=== PATIENT | female | born 1990 | race African-American/Black ===

== ENCOUNTER 2018-12-30 00:05 | Inpatient (IN) ==
[2018-12-30] MEDS ORDERED: ONDANSETRON 4 MG/2 ML VIAL IV PRN (00:20)
[2018-12-30] MEDS ORDERED: AMPICILLIN INJ 2,000 MG in SODIUM CHLORIDE 0.9% 100 ML IV ONE (00:25)
[2018-12-30] MEDS ORDERED: LABETALOL 100 MG TABLET ONE (00:52)
[2018-12-30] MEDS: LABETALOL 100 MG TABLET PO SCH ×3 (01:00→22:41)
[2018-12-30 01:05] LABS: Basophils % 0.2 % (0.0-0.8); Eosinophils # 0.1 10*3/uL (0.0-0.87); Eosinophils % 0.8 % (0.00-10.9); Hematocrit 31.7 VOL% (35.7-47.0); Hemoglobin 9.5 GM/DL (12.0-16.0); Immature Granulocytes % 1.1 %; Immature Granulocytes Absolute 0.15 #; Mean Corpuscular Hemoglobin 21 PG (27-34); Mean Corpuscular Volume 68.5 FL (87-102); Mean Platelet Volume 9.1 FL (9.6-12.0); Monocytes # 1.1 10*3/uL (0.11-0.8); Monocytes % 7.9 % (1.7-12.7); Platelet Count 326 T/CUMM (130-400); Red Blood Count 4.63 MC/CUMM (3.8-5.5); Red Cell Distribution Width 19.9 % (9.3-17.3); White Blood Count 13.4 T/CUMM (4-12)
[2018-12-30] MEDS: LACTATED RINGERS 1,000 ML IV SCH ×4 (01:19→21:14)
[2018-12-30 01:26] LABS: Bilirubin,Direct < 0.100 MG/DL (0.0-0.20); Uric Acid 3.7 MG/DL (2.6-6.0)
[2018-12-30 01:28] LABS: Alanine Aminotransferase 12 U/L (13-56); Albumin 2.5 G/DL (3.4-5.0); Alkaline Phosphatase 100 U/L (45-117); Aspartate Amino Transferase 10 U/L (0-37); Bilirubin,Total < 0.39 MG/DL (0.2-1.0); Blood Urea Nitrogen 8 MG/DL (7-18); Glucose 90 MG/DL (74-106); Osmolality,Calculated 274.5 MOS/KG (273-304); Potassium 3.8 MMOL/L (3.5-5.1); Sodium 139 MMOL/L (136-145); Total Protein 6.9 G/DL (6.4-8.3)
[2018-12-30 01:34] LABS: INR 0.9; PT Patient Result 9.6 SECS; Partial Thromboplastin Time 26.6 SECS (0-40)
[2018-12-30] MEDS: AMPICILLIN INJ 1,000 MG in SODIUM CHLORIDE 0.9% 100 ML IV SCH ×5 (04:43→22:41)
[2018-12-30] MEDS: OXYTOCIN/LR 20 UNIT/1,000 ML BAG IV SCH (08:51)
[2018-12-30] MEDS: BUTORPHANOL 2 MG/ML VIAL IV PRN ×2 (13:42→17:38)
[2018-12-30] MEDS ORDERED: LACTATED RINGERS 1,000 ML IV ONE (20:14)
[2018-12-30] MEDS ORDERED: CITRIC ACID/SODIUM CITRATE 30 ML UDCUP PO ONE (20:14)
[2018-12-30] MEDS ORDERED: ePHEDrine 50 MG/ML AMP IV PRN (20:14)
[2018-12-30] MEDS ORDERED: FAMOTIDINE 20 MG/2 ML VIAL IV ONE (20:14)
[2018-12-30] MEDS ORDERED: diphenhydrAMINE 50 MG/1 ML VIAL IV PRN ×2 (20:16)
[2018-12-30] MEDS ORDERED: NALOXONE 0.4 MG/ML VIAL IV PRN (20:16)
[2018-12-30] MEDS ORDERED: hydrOXYzine HCL 25 MG/1 ML VIAL IM PRN (20:16)
[2018-12-30] MEDS ORDERED: fentaNYL 2 MCG/ROPIV 0.2% EPID 100 ML EPIDURAL SCH (20:30)
[2018-12-30] MEDS ORDERED: LIDOCAINE 1% 50 ML VIAL ONE (23:56)
[2018-12-30] MEDS ORDERED: CARBOPROST TROMETHAMINE 250 MCG/ML AMP IM ONE (23:56)
[2018-12-30] MEDS ORDERED: miSOPROStol 200 MCG TABLET ONE (23:56)
[2018-12-30] MEDS ORDERED: METHYLERGONOVINE 0.2 MG/1 ML AMP ONE (23:56)
[2018-12-31] MEDS: AMPICILLIN INJ 1,000 MG in SODIUM CHLORIDE 0.9% 100 ML IV SCH ×2 (02:28→06:20)
[2018-12-31] MEDS ORDERED: ceFAZolin 3,000 MG in SYRINGE 1 EACH IV ONE (07:36)
[2018-12-31] MEDS ORDERED: LIDOCAINE MPF 2% /EPI 20 ML VIAL ONE (07:40)
[2018-12-31] MEDS ORDERED: PHENYLEPHRINE 1 MG/10 ML SYRINGE IV ONE (07:40)
[2018-12-31] MEDS ORDERED: MAGNESIUM HYDROXIDE SUSP 30 ML UDCUP PO PRN (09:11)
[2018-12-31] MEDS ORDERED: ONDANSETRON 4 MG/2 ML VIAL IV PRN (09:11)
[2018-12-31] MEDS ORDERED: IBUPROFEN 800 MG TABLET PO PRN (09:11)
[2018-12-31] MEDS ORDERED: OXYTOCIN/LR 20 UNIT/1,000 ML BAG IV ONE (09:11)
[2018-12-31] MEDS ORDERED: ACETAMINOPHEN 325 MG TABLET PO PRN (09:11)
[2018-12-31] MEDS ORDERED: RHO(D) IMMUNE GLOBULIN 300 MCG SYRINGE IM ONE (10:00)
[2018-12-31] MEDS: KETOROLAC 30 MG/1 ML VIAL IV SCH ×3 (11:20→23:04)
[2018-12-31] MEDS: ACETAMINOPHEN 500 MG TABLET PO SCH ×3 (11:24→23:03)
[2018-12-31] MEDS ORDERED: MIDAZOLAM 2 MG/2 ML VIAL ONE (12:25)
[2018-12-31] MEDS: LABETALOL 100 MG TABLET PO SCH ×2 (12:40→23:03)
[2018-12-31] MEDS: ceFAZolin 1,000 MG in SYRINGE 1 EACH IV SCH (15:40)
[2018-12-31 18:35] LABS: Basophils % 0.3 % (0.0-0.8); Eosinophils # 0.1 10*3/uL (0.0-0.87); Eosinophils % 0.6 % (0.00-10.9); Hematocrit 29.5 VOL% (35.7-47.0); Hemoglobin 8.5 GM/DL (12.0-16.0); Immature Granulocytes % 0.8 %; Immature Granulocytes Absolute 0.11 #; Lymphocytes # 1.5 10*3/uL (1.4-4.0); Lymphocytes % 10.6 % (21.3-54.2); Mean Corpuscular HGB Conc 28.8 GM/DL (32-36); Mean Corpuscular Hemoglobin 20 PG (27-34); Mean Corpuscular Volume 69.6 FL (87-102); Mean Platelet Volume 9.2 FL (9.6-12.0); Monocytes # 1.1 10*3/uL (0.11-0.8); Monocytes % 7.5 % (1.7-12.7); Neutrophils # 11.3 10*3/uL (1.4-7.4); Neutrophils % 80.2 % (38.7-73.9); Platelet Count 277 T/CUMM (130-400); Red Blood Count 4.24 MC/CUMM (3.8-5.5); Red Cell Distribution Width 19.6 % (9.3-17.3); White Blood Count 14.1 T/CUMM (4-12)
[2018-12-31 19:31] LABS: Hypochromasia 1+; Microcytosis 1+
[2018-12-31 19:32] LABS: Polychromasia Few
[2018-12-31] MEDS: LACTATED RINGERS 1,000 ML IV SCH (21:14)
[2018-12-31] MEDS: DOCUSATE SODIUM 100 MG CAPSULE PO SCH (21:14)
[2019-01-01] MEDS: ceFAZolin 1,000 MG in SYRINGE 1 EACH IV SCH (00:17)
[2019-01-01] MEDS: ACETAMINOPHEN 500 MG TABLET PO SCH (04:30)
[2019-01-01] MEDS: KETOROLAC 30 MG/1 ML VIAL IV SCH (04:30)
[2019-01-01] MEDS ORDERED: HYDROmorphone 2 MG/1 ML VIAL IV PRN (05:20)
[2019-01-01 06:49] LABS: Basophils % 0.3 % (0.0-0.8); Eosinophils # 0.1 10*3/uL (0.0-0.87); Hematocrit 27.5 VOL% (35.7-47.0); Immature Granulocytes % 0.9 %; Immature Granulocytes Absolute 0.12 #; Lymphocytes # 1.3 10*3/uL (1.4-4.0); Lymphocytes % 9.4 % (21.3-54.2); Mean Corpuscular HGB Conc 29.1 GM/DL (32-36); Mean Corpuscular Hemoglobin 20 PG (27-34); Mean Corpuscular Volume 69.8 FL (87-102); Monocytes # 1.2 10*3/uL (0.11-0.8); Monocytes % 9.3 % (1.7-12.7); Neutrophils # 10.5 10*3/uL (1.4-7.4); Neutrophils % 79.1 % (38.7-73.9); Platelet Count 250 T/CUMM (130-400); Red Blood Count 3.94 MC/CUMM (3.8-5.5); Red Cell Distribution Width 19.8 % (9.3-17.3); White Blood Count 13.3 T/CUMM (4-12)
[2019-01-01] MEDS ORDERED: oxyCODONE/ACETAMINOPHEN 5-325 MG TABLET ONE (08:19)
[2019-01-01] MEDS ORDERED: IBUPROFEN 800 MG TABLET ONE (08:28)
[2019-01-01] MEDS: MULTIVITAMIN (PRENATAL) TABLET PO SCH (08:31)
[2019-01-01] MEDS: LABETALOL 100 MG TABLET PO SCH ×2 (08:31→21:08)
[2019-01-01] MEDS: SIMETHICONE CHEW 80 MG TABLET PO PRN ×3 (08:33→21:09)
[2019-01-01] MEDS: oxyCODONE/ACETAMINOPHEN 5-325 MG TABLET PO PRN ×3 (08:34→22:13)
[2019-01-01] MEDS ORDERED: IBUPROFEN 800 MG TABLET PO PRN (10:30)
[2019-01-01] MEDS ORDERED: ACETAMINOPHEN 325 MG TABLET PO PRN (10:30)
[2019-01-01] MEDS: IBUPROFEN 800 MG TABLET PO PRN ×2 (14:25→22:13)
[2019-01-01] MEDS: DOCUSATE SODIUM 100 MG CAPSULE PO SCH ×2 (14:29→21:08)
[2019-01-01] MEDS ORDERED: RHO(D) IMMUNE GLOBULIN 300 MCG SYRINGE IM ONE (18:27)
[2019-01-01] MEDS: OXYTOCIN/LR 20 UNIT/1,000 ML BAG IV SCH (20:35)
[2019-01-01] MEDS: LACTATED RINGERS 1,000 ML IV SCH (20:41)
[2019-01-02] MEDS: AMPICILLIN INJ 1,000 MG in SODIUM CHLORIDE 0.9% 100 ML IV SCH (01:07)
[2019-01-02] MEDS: LACTATED RINGERS 1,000 ML IV SCH ×2 (01:07→01:08)
[2019-01-02] MEDS: DOCUSATE SODIUM 100 MG CAPSULE PO SCH ×2 (07:39→21:52)
[2019-01-02] MEDS: LABETALOL 100 MG TABLET PO SCH (07:39)
[2019-01-02] MEDS: MULTIVITAMIN (PRENATAL) TABLET PO SCH (07:39)
[2019-01-02] MEDS: SIMETHICONE CHEW 80 MG TABLET PO PRN (07:41)
[2019-01-02] MEDS: IBUPROFEN 800 MG TABLET PO PRN ×2 (13:22→21:53)
[2019-01-02] MEDS ORDERED: LABETALOL 100 MG TABLET PO STA (16:18)
[2019-01-02 16:56] LABS: Basophils % 0.2 % (0.0-0.8); Eosinophils # 0.2 10*3/uL (0.0-0.87); Eosinophils % 1.9 % (0.00-10.9); Hematocrit 26.7 VOL% (35.7-47.0); Immature Granulocytes % 0.9 %; Immature Granulocytes Absolute 0.12 #; Lymphocytes # 1.2 10*3/uL (1.4-4.0); Lymphocytes % 9.4 % (21.3-54.2); Mean Corpuscular Hemoglobin 21 PG (27-34); Mean Corpuscular Volume 69.4 FL (87-102); Mean Platelet Volume 8.8 FL (9.6-12.0); Monocytes # 0.9 10*3/uL (0.11-0.8); Neutrophils # 10.3 10*3/uL (1.4-7.4); Neutrophils % 80.6 % (38.7-73.9); Platelet Count 266 T/CUMM (130-400); Red Blood Count 3.85 MC/CUMM (3.8-5.5); Red Cell Distribution Width 19.8 % (9.3-17.3); White Blood Count 12.8 T/CUMM (4-12)
[2019-01-02 17:06] LABS: INR 0.9; PT Patient Result 9.8 SECS; Partial Thromboplastin Time 29.3 SECS (0-40)
[2019-01-02 17:14] LABS: Alanine Aminotransferase 10 U/L (13-56); Albumin 2.3 G/DL (3.4-5.0); Alkaline Phosphatase 77 U/L (45-117); Aspartate Amino Transferase 12 U/L (0-37); Bilirubin,Total < 0.39 MG/DL (0.2-1.0); Blood Urea Nitrogen 7 MG/DL (7-18); Glucose 99 MG/DL (74-106); Osmolality,Calculated 274.5 MOS/KG (273-304); Potassium 3.7 MMOL/L (3.5-5.1); Sodium 139 MMOL/L (136-145); Total Protein 6.2 G/DL (6.4-8.3); Uric Acid 3.9 MG/DL (2.6-6.0)
[2019-01-02] MEDS: LABETALOL 200 MG TABLET PO SCH (21:52)
[2019-01-02] MEDS: OXYTOCIN/LR 20 UNIT/1,000 ML BAG IV SCH (22:04)
[2019-01-03] MEDS: LACTATED RINGERS 1,000 ML IV SCH (01:10)
[2019-01-03] MEDS: MULTIVITAMIN (PRENATAL) TABLET PO SCH ×2 (01:11→07:38)
[2019-01-03 07:25] VITALS: BP 138/82
[2019-01-03] MEDS: IBUPROFEN 800 MG TABLET PO PRN (07:36)
[2019-01-03] MEDS: oxyCODONE/ACETAMINOPHEN 5-325 MG TABLET PO PRN ×2 (07:37→07:40)
[2019-01-03] MEDS: DOCUSATE SODIUM 100 MG CAPSULE PO SCH (07:38)
[2019-01-03] MEDS: LABETALOL 200 MG TABLET PO SCH (07:38)
[2019-01-03] MEDS ORDERED: DIPH/TET/ACEL PERT BOOSTER VACCINE 0.5 ML VIAL IM ONE (10:03)
[2019-01-03] MEDS ORDERED: MEASLES/MUMPS/RUBELLA VACCINE 0.5 ML VIAL SUBCUT ONE (11:03)
== END 2019-01-03 13:05 | disposition home or self-care (01) | DRG 788 ==
LOC: N.LDOUT 00:05 → N.LD 00:08 → N.OB 12-31 14:30
PROVIDERS: ADMIT Obstetrics & Gynecology; ATTEND Obstetrics & Gynecology
PROC: LDCSECT (ICD-10-PCS; 2018-12-31 07:45)